=== PATIENT | female | born 1985 | race Asian ===

== ENCOUNTER 2024-08-04 06:33 | Outpatient (REF) | payer BC, SELFPAY ==
--- NOTE | ~2024-08-04 | US_ITS ---
EXAMINATION: US RETROPERITONEAL COMPLETE (RENAL) CLINICAL INFORMATION: Right lower quadrant pain and low back pain. COMPARISON: None available. TECHNIQUE: Real-time imaging of the kidneys and bladder. FINDINGS: RIGHT KIDNEY: 12.2 x 3.9 x 5.6 cm (SAG x AP x TRV). The kidney is normal in size, contour, and echogenicity. Renal cortical thickness is normal. No renal calculi or focal parenchymal lesions. Trace hydronephrosis. LEFT KIDNEY: 12 x 6.3 x 6 cm (SAG x AP x TRV). The kidney is normal in size, contour, and echogenicity. Renal cortical thickness is normal. No renal calculi. Trace hydronephrosis. Simple appearing cyst in the mid to lower pole, for which no imaging follow-up is recommended. BLADDER: Well distended and normal. Bilateral ureteral jets are demonstrated. Prevoid bladder volume is 416 mL. Postvoid bladder volume is 31.6 mL. ADDITIONAL FINDINGS: Abnormal dilatation of a noncompressible appendix measuring up to 1.4 cm in diameter with wall thickening and surrounding inflammatory changes. Increased liver parenchymal echogenicity. US/US retroperitoneal comp IMPRESSION: 1. Findings are most consistent with acute appendicitis. 2. Trace bilateral hydronephrosis of uncertain etiology. 3. Increased liver parenchymal echogenicity suggesting hepatic steatosis. This critical result was discussed with Jesús Jarrell at 08/04/2024 2:45 PM CDT and it was ascertained that the content and urgency of the report was understood at the time of direct communication. Electronically signed by: Josefina Sanders MD 08/04/2024 03:47 PM EDT
== END 2024-08-04 06:34 | disposition home or self-care (01) ==
LOC: HO.UMASIMG 06:33
PROVIDERS: Visit Provider Family Medicine
DX: M54.50 Low back pain, unspecified (principal)
CPT/HCPCS: 76770